=== PATIENT | female | born 1995 | race Caucasian/White ===

== ENCOUNTER 2019-04-23 18:46 | Emergency (ER) | payer OTHER, MEDICAID, SELFPAY ==
[2019-04-23 19:44] VITALS: BP 146/87; PULSE 97; RESP 18; TEMP 36.4; O2SAT 99; BMI 49.4
--- NOTE | 2019-04-23 20:10 | ED.NAVMDI ---
HPI - Nausea/Vomiting/Diarrhea <SCOTT Stevenson - Last Filed: 04/23/19 23:22> General Chief complaint: Nausea/Vomiting/Diarrhea Stated complaint: VOMITING FEVER BODY ACHES Time Seen by Provider: 04/23/19 19:58 Source: patient Mode of arrival: ambulatory Limitations: no limitations History of Present Illness HPI Narrative: 24-year-old female presents emergency department today complaining of full body aches with nausea and vomiting and diarrhea since Friday. She denies any abdominal pain but states when she pushes on a stomach it makes her feel like she is going to vomit more. She states she has an occasional dry cough without mucus production. This morning she checked her temperature and it was 101 for night. She denies any chest pain, shortness of breath, sick contacts, blood in her stool, syncope, or other concerning symptoms. Related Data Previous Rx's Medication Instructions Recorded sertraline [Zoloft] 50 mg PO QDAY #30 tab 05/14/17 nystatin 1 [place] TOPICAL BID #30 gm 05/19/17 norethindrone (contraceptive) 0.35 mg PO QDAY #1 pac 06/03/17 [Ortho Micronor] azithromycin [Zithromax] 250 - 500 mg PO QDAY #6 tab 07/17/17 ondansetron 4 mg PO Q6H #7 tab 04/23/19 sulfamethoxazole-trimethoprim 1 tab PO Q12H 5 Days #10 tab 04/23/19 [Bactrim DS] Allergies Allergy/AdvReac Type Severity Reaction Status Date / Time amoxicillin [From AUGMENTIN] Allergy Intermediate Verified 04/23/19 19:43 clavulanic acid Allergy Intermediate Verified 04/23/19 19:43 [From AUGMENTIN] Review of Systems <SCOTT Stevenson - Last Filed: 04/23/19 23:22> Review of Systems Narrative: REVIEW OF SYSTEMS: GENERAL: Denies fever, chills, malaise, or wt. loss. HENT: No head trauma, sore throat, or dysphagia. EYES: No loss of vision, double vision, eye pain, or irritation. CARDIOVASCULAR: No chest pain, palpitations, or orthopnea. RESPIRATORY: No shortness of breath or cough. GASTROINTESTINAL: Complains of nausea vomiting and diarrhea, see HPI GENITOURINARY: No flank pain, urinary incontinence, hesitancy, frequency, or dysuria. No vaginal discharge or dyspareunia. Denies concerns for STIs MUSCULOSKELETAL: No pain, weakness, or trauma. INTEGUMENTARY: No rash, lesions, or pruritus. NEURO: No numbness, tingling, memory loss, confusion, or headaches. PSYCH: No behavior or mood changes. PFSH <SCOTT Stevenson - Last Filed: 04/23/19 23:22> Medical History Morbid obesity (03/31/17) Social History Smoking Status: Never smoker Social History Smoking Status: Never smoker Exam <SCOTT Stevenson - Last Filed: 04/23/19 23:22> Initial Vital Signs Initial Vital Signs: Vital Signs Temperature 97.6 F 04/23/19 19:44 Pulse Rate 97 H 04/23/19 19:44 Respiratory Rate 18 04/23/19 19:44 Blood Pressure 146/87 H 04/23/19 19:44 Pulse Oximetry 99 04/23/19 19:44 PHYSICAL EXAMINATION: GENERAL: Well groomed, alert, and cooperative. Answers questions promptly and appropriately. Vital signs noted. HENT: Normocephalic, atraumatic. Hearing intact. Oral mucosa is pink and moist. EYES: Conjunctiva pink, sclera white, no periorbital swelling. CARDIOVASCULAR: S1 and S2 sounds normal. Regular rate and rhythm, no murmurs, clicks, or bruits. No pedal edema. RESPIRATORY: Normal respiratory rate, trachea midline, airway patent. No stridor, nasal flaring or accessory muscle use. Lungs are clear in all dejesus without wheeze, rhonchi, or crackles. GASTROINTESTINAL: Bowel sounds normoactive. Abdomen is soft, patient reports slight tenderness to epigastric area. No organomegaly, no palpable masses. GENITALURINARY: No flank tenderness. MUSCULOSKELETAL: Normal gait and coordination. Equal tone and mass bilaterally. EXTREMITIES: CMS intact, no pedal edema. SKIN: Warm, dry, soft, appropriate color for ethnicity. No lesions, rashes, or wounds. NEURO: Alert and Oriented X 3. Good coordination. No ataxia, or sensory deficits, or cognitive issues. PSYCH: Appropriate affect and mood. <Mikhail Diane - Last Filed: 04/23/19 23:25> Initial Vital Signs Initial Vital Signs: Vital Signs Temperature 97.6 F 04/23/19 19:44 Pulse Rate 97 H 04/23/19 19:44 Respiratory Rate 18 04/23/19 19:44 Blood Pressure 146/87 H 04/23/19 19:44 Pulse Oximetry 99 04/23/19 19:44 Course <Debra MonaeSCOTT - Last Filed: 04/23/19 23:22> Course Course Narrative: Patient reported improvement after administration of Zofran, she was able to get up and walk around. I gave her another dose of Zofran IV, she reported further relief of nausea. Due to her abdominal symptoms and urinalysis, I treated her with antibiotics. Strict return precautions given and all instructions discussed. Orders Ordered: ED Orders 04/23/19 20:18 Complete Blood Count AUTO DIFF Stat Comprehensive Metabolic Panel Stat 04/23/19 22:05 Urine Culture Stat Urine Microscopic Stat Discontinued Medications Sodium Chloride (Normal Saline 0.9%) 1,000 mls @ 1,000 mls/hr IV BOLUS ONE Stop: 04/23/19 21:04 Last Infusion: 04/23/19 22:12 Dose: 0 mls/hr Documented by: Admin: 04/23/19 20:35 Dose: 1,000 mls/hr Documented by: SHAHEED Ondansetron HCl (Zofran) 4 mg IV NOW ONE Stop: 04/23/19 20:06 Last Admin: 04/23/19 20:35 Dose: 4 mg Documented by: SHAHEED Ondansetron HCl (Zofran Odt) 4 mg SL NOW ONE Stop: 04/23/19 22:02 Last Admin: 04/23/19 22:56 Dose: Not Given Documented by: RICK Ondansetron HCl (Zofran) 4 mg IV NOW ONE Stop: 04/23/19 22:04 Last Admin: 04/23/19 22:14 Dose: 4 mg Documented by: RICK Ondansetron HCl (Zofran Odt Prepack) 1 bottle MISC SEEINSTR ONE Stop: 04/23/19 22:34 Last Admin: 04/23/19 22:51 Dose: 1 bottle Documented by: RICK Trimethoprim/Sulfamethoxazole (Bactrim Ds Prepack) 1 bottle MISC SEEINSTR ONE Stop: 04/23/19 22:34 Last Admin: 04/23/19 22:51 Dose: 1 bottle Documented by: RICK Vital Signs Vital signs: Vital Signs - 8 hr 04/23/19 19:44 04/23/19 22:54 Temperature 97.6 F Pulse Rate 97 H 86 Respiratory Rate 18 16 Blood Pressure 146/87 H 134/85 Pulse Oximetry 99 100 <Mikhail Diane DO - Last Filed: 04/23/19 23:25> Orders Ordered: ED Orders 04/23/19 20:18 Complete Blood Count AUTO DIFF Stat Comprehensive Metabolic Panel Stat 04/23/19 22:05 Urine Culture Stat Urine Microscopic Stat Discontinued Medications Sodium Chloride (Normal Saline 0.9%) 1,000 mls @ 1,000 mls/hr IV BOLUS ONE Stop: 04/23/19 21:04 Last Infusion: 04/23/19 22:12 Dose: 0 mls/hr Documented by: Admin: 04/23/19 20:35 Dose: 1,000 mls/hr Documented by: SHAHEED Ondansetron HCl (Zofran) 4 mg IV NOW ONE Stop: 04/23/19 20:06 Last Admin: 04/23/19 20:35 Dose: 4 mg Documented by: SHAHEED Ondansetron HCl (Zofran Odt) 4 mg SL NOW ONE Stop: 04/23/19 22:02 Last Admin: 04/23/19 22:56 Dose: Not Given Documented by: RICK Ondansetron HCl (Zofran) 4 mg IV NOW ONE Stop: 04/23/19 22:04 Last Admin: 04/23/19 22:14 Dose: 4 mg Documented by: RICK Ondansetron HCl (Zofran Odt Prepack) 1 bottle MISC SEEINSTR ONE Stop: 04/23/19 22:34 Last Admin: 04/23/19 22:51 Dose: 1 bottle Documented by: RICK Trimethoprim/Sulfamethoxazole (Bactrim Ds Prepack) 1 bottle MISC SEEINSTR ONE Stop: 04/23/19 22:34 Last Admin: 04/23/19 22:51 Dose: 1 bottle Documented by: RICK Vital Signs Vital signs: Vital Signs - 8 hr 04/23/19 19:44 04/23/19 22:54 Temperature 97.6 F Pulse Rate 97 H 86 Respiratory Rate 18 16 Blood Pressure 146/87 H 134/85 Pulse Oximetry 99 100 MDM - Nausea/Vomiting/Diarrhea <Debra SCOTT Monae - Last Filed: 04/23/19 23:22> Medical Records Attestation: I reviewed the patient's medical records. Lab Data Attestation: I reviewed the patient's lab results. Result diagrams: 04/23/19 20:18 04/23/19 20:18 Labs: Lab Results 04/23/19 04/23/19 04/23/19 Range/Units 20:18 20:18 22:05 WBC 11.0 (4.5-11.0) X10^3/uL RBC 4.77 (4.0-5.2) X10^6/uL Hgb 12.8 (12.0-16.0) g/dL Hct 38.8 (36-46) % MCV 81.3 (80-100) fL MCH 26.9 (26-34) PG MCHC 33.1 (30-36) % RDW 15.8 H (11.6-14.8) % Plt Count 229 (150-400) X10^3/uL Neut % (Auto) 59.2 (50-75) % Lymph % (Auto) 33.2 (25-40) % [place] % (Auto) 6.7 (3-14) % Eos % (Auto) 0.6 L (2-4) % Baso % (Auto) 0.3 (0-2) % Neut # (Auto) 6500 (6092-9543) /uL Lymph # (Auto) 3700 (3382-7496) /uL [place] # (Auto) 700 (0-900) /uL Eos # (Auto) 100 (0-450) /uL Baso # (Auto) 0 (0-100) /uL Sodium 139 (137-145) mmol/L Potassium 3.7 (3.4-5.1) mmol/L Chloride 102 (98-107) mmol/L Carbon Dioxide 25 (22-32) mmol/L BUN 18 H (7-17) mg/dL Creatinine 0.60 (0.52-1.04) mg/dL Estimated GFR > 60.0 (>60) mL/min BUN/Creatinine Ratio 30.0 H (6-22) Glucose 95 (70-100) mg/dL Calcium 9.1 (8.4-10.2) mg/dL Total Bilirubin 0.4 (0.2-1.3) mg/dL AST 23 (14-36) IU/L ALT 31 (9-52) IU/L Alkaline Phosphatase 65 (38-126) U/L Total Protein 7.4 (6.3-8.2) g/dL Albumin 4.4 (3.5-5.0) g/dL Globulin 3.0 (1.7-4.1) g/dL Albumin/Globulin Ratio 1.5 (1.0-2.8) Urine RBC 1-5/hpf (0-5/HPF) Urine WBC 10-30/hpf H (0-5/HPF) Ur Squamous Epith Cells 1-5 /hpf (0-5/HPF) Ur Transition Epith Cell 1-5/hpf (0-5/HPF) Urine Bacteria Moderate (10-30) H (None) Urine Mucus 2+ H (Negative) Ur Culture Indicated? Specimen cultured Influenza A & B (PCR) 04/23/19 Range/Units 22:35 WBC (4.5-11.0) X10^3/uL RBC (4.0-5.2) X10^6/uL Hgb (12.0-16.0) g/dL Hct (36-46) % MCV (80-100) fL MCH (26-34) PG MCHC (30-36) % RDW (11.6-14.8) % Plt Count (150-400) X10^3/uL Neut % (Auto) (50-75) % Lymph % (Auto) (25-40) % [place] % (Auto) (3-14) % Eos % (Auto) (2-4) % Baso % (Auto) (0-2) % Neut # (Auto) (4687-6355) /uL Lymph # (Auto) (6372-5922) /uL [place] # (Auto) (0-900) /uL Eos # (Auto) (0-450) /uL Baso # (Auto) (0-100) /uL Sodium (137-145) mmol/L Potassium (3.4-5.1) mmol/L Chloride (98-107) mmol/L Carbon Dioxide (22-32) mmol/L BUN (7-17) mg/dL Creatinine (0.52-1.04) mg/dL Estimated GFR (>60) mL/min BUN/Creatinine Ratio (6-22) Glucose (70-100) mg/dL Calcium (8.4-10.2) mg/dL Total Bilirubin (0.2-1.3) mg/dL AST (14-36) IU/L ALT (9-52) IU/L Alkaline Phosphatase (38-126) U/L Total Protein (6.3-8.2) g/dL Albumin (3.5-5.0) g/dL Globulin (1.7-4.1) g/dL Albumin/Globulin Ratio (1.0-2.8) Urine RBC (0-5/HPF) Urine WBC (0-5/HPF) Ur Squamous Epith Cells (0-5/HPF) Ur Transition Epith Cell (0-5/HPF) Urine Bacteria (None) Urine Mucus (Negative) Ur Culture Indicated? Influenza A & B (PCR) Cancelled Point of Care Testing Test Results Negative Urine Dip Bedside Urine Glucose Negative Bedside Urine Bilirubin - Negative Bedside Urine Ketone +/- 5 Urine Specific Abbott 1.030 Bedside Urine Occult Blood - Negative Bedside Urine Protein +/- 15 Bedside Urine Urobilinogen +/- 1mg Bedside Urine Nitrite - Negative Bedside Urine Leukocytes + 70 Esterase MDM Narrative Medical decision making narrative: Differential for nausea and vomiting include viral gastroenteritis (onset of symptoms, associated with body aches, laboratory results are within normal limits), urinary tract infection (as exhibited by urinalysis). Less likely acute abdomen such as appendicitis, cholecystitis, pancreatitis due to normal labs and nontender abdomen. Do not feel like patient is septic as she is not tachycardic or febrile in the emergency department. She was able to lose drink water during her stay in the emergency department after administration of Zofran, as she is a candidate for outpatient. Precautions and follow-up instructions discussed. <Mikhail Diane DO - Last Filed: 04/23/19 23:25> Lab Data Labs: Lab Results 04/23/19 04/23/19 04/23/19 Range/Units 20:18 20:18 22:05 WBC 11.0 (4.5-11.0) X10^3/uL RBC 4.77 (4.0-5.2) X10^6/uL Hgb 12.8 (12.0-16.0) g/dL Hct 38.8 (36-46) % MCV 81.3 (80-100) fL MCH 26.9 (26-34) PG MCHC 33.1 (30-36) % RDW 15.8 H (11.6-14.8) % Plt Count 229 (150-400) X10^3/uL Neut % (Auto) 59.2 (50-75) % Lymph % (Auto) 33.2 (25-40) % [place] % (Auto) 6.7 (3-14) % Eos % (Auto) 0.6 L (2-4) % Baso % (Auto) 0.3 (0-2) % Neut # (Auto) 6500 (2180-5437) /uL Lymph # (Auto) 3700 (3926-2993) /uL [place] # (Auto) 700 (0-900) /uL Eos # (Auto) 100 (0-450) /uL Baso # (Auto) 0 (0-100) /uL Sodium 139 (137-145) mmol/L Potassium 3.7 (3.4-5.1) mmol/L Chloride 102 (98-107) mmol/L Carbon Dioxide 25 (22-32) mmol/L BUN 18 H (7-17) mg/dL Creatinine 0.60 (0.52-1.04) mg/dL Estimated GFR > 60.0 (>60) mL/min BUN/Creatinine Ratio 30.0 H (6-22) Glucose 95 (70-100) mg/dL Calcium 9.1 (8.4-10.2) mg/dL Total Bilirubin 0.4 (0.2-1.3) mg/dL AST 23 (14-36) IU/L ALT 31 (9-52) IU/L Alkaline Phosphatase 65 (38-126) U/L Total Protein 7.4 (6.3-8.2) g/dL Albumin 4.4 (3.5-5.0) g/dL Globulin 3.0 (1.7-4.1) g/dL Albumin/Globulin Ratio 1.5 (1.0-2.8) Urine RBC 1-5/hpf (0-5/HPF) Urine WBC 10-30/hpf H (0-5/HPF) Ur Squamous Epith Cells 1-5 /hpf (0-5/HPF) Ur Transition Epith Cell 1-5/hpf (0-5/HPF) Urine Bacteria Moderate (10-30) H (None) Urine Mucus 2+ H (Negative) Ur Culture Indicated? Specimen cultured Influenza A & B (PCR) 04/23/19 Range/Units 22:35 WBC (4.5-11.0) X10^3/uL RBC (4.0-5.2) X10^6/uL Hgb (12.0-16.0) g/dL Hct (36-46) % MCV (80-100) fL MCH (26-34) PG MCHC (30-36) % RDW (11.6-14.8) % Plt Count (150-400) X10^3/uL Neut % (Auto) (50-75) % Lymph % (Auto) (25-40) % [place] % (Auto) (3-14) % Eos % (Auto) (2-4) % Baso % (Auto) (0-2) % Neut # (Auto) (0768-2217) /uL Lymph # (Auto) (8698-9334) /uL [place] # (Auto) (0-900) /uL Eos # (Auto) (0-450) /uL Baso # (Auto) (0-100) /uL Sodium (137-145) mmol/L Potassium (3.4-5.1) mmol/L Chloride (98-107) mmol/L Carbon Dioxide (22-32) mmol/L BUN (7-17) mg/dL Creatinine (0.52-1.04) mg/dL Estimated GFR (>60) mL/min BUN/Creatinine Ratio (6-22) Glucose (70-100) mg/dL Calcium (8.4-10.2) mg/dL Total Bilirubin (0.2-1.3) mg/dL AST (14-36) IU/L ALT (9-52) IU/L Alkaline Phosphatase (38-126) U/L Total Protein (6.3-8.2) g/dL Albumin (3.5-5.0) g/dL Globulin (1.7-4.1) g/dL Albumin/Globulin Ratio (1.0-2.8) Urine RBC (0-5/HPF) Urine WBC (0-5/HPF) Ur Squamous Epith Cells (0-5/HPF) Ur Transition Epith Cell (0-5/HPF) Urine Bacteria (None) Urine Mucus (Negative) Ur Culture Indicated? Influenza A & B (PCR) Cancelled Point of Care Testing Test Results Negative Urine Dip Bedside Urine Glucose Negative Bedside Urine Bilirubin - Negative Bedside Urine Ketone +/- 5 Urine Specific Abbott 1.030 Bedside Urine Occult Blood - Negative Bedside Urine Protein +/- 15 Bedside Urine Urobilinogen +/- 1mg Bedside Urine Nitrite - Negative Bedside Urine Leukocytes + 70 Esterase Discharge Plan Departure Patient Disposition: Home Clinical Impression: Nausea Urinary tract infection Qualifiers: Urinary tract infection type: acute cystitis Hematuria presence: without hematuria Qualified Code(s): N30.00 - Acute cystitis without hematuria Discharge Date/Time: 04/23/19 22:54 Instructions: DI for Urinary Tract Infection (UTI), DI for Vomiting -- Adult Activity Restrictions/Additional Instructions: Thank you for entrusting me with your care today. As discussed, your urine analysis indicates that you have a urinary tract infection, I prescribed you an antibiotic, please take this as directed. Your other lab work does not reveal any concerning symptoms are reason for vomiting. Please follow up with your primary care provider in the next week for further testing and evaluation if needed. Return to the emergency department for chest pain, shortness of breath, worsening fevers that do not resolve with Tylenol ibuprofen, uncontrollable vomiting, severe abdominal pain, or other concerning symptoms. Prescriptions: New sulfamethoxazole-trimethoprim [Bactrim DS] 800-160 mg tablet 1 tab PO Q12H 5 Days Qty: 10 RF: 0 ondansetron 4 mg tablet,disintegrating 4 mg PO Q6H Qty: 7 RF: 0 No Action sertraline [Zoloft] 50 MG tablet 50 mg PO QDAY Qty: 30 RF: 1 nystatin 30 GM cream 1 stanford Topical BID Qty: 30 RF: 1 norethindrone (contraceptive) [Ortho Micronor] 0.35 MG tablet 0.35 mg PO QDAY Qty: 1 RF: 6 azithromycin [Zithromax] 250 MG tablet 250 - 500 mg PO QDAY Qty: 6 RF: 0 Referrals: Yonathan Tipton MD [Primary Care Provider] - <Mikhail Diane DO - Last Filed: 04/23/19 23:25> Sign Out Provider Sign Out Attestation: I was available for consultation during this patient's emergency department encounter
[2019-04-23 20:32] LABS: Add Manual Diff / Slide Review NO; Basophils Absolute Auto 0 /uL (0-100); Basophils Percent Auto 0.3 % (0-2); Eosinophils Absolute Auto 100 /uL (0-450); Eosinophils Percent Auto 0.6 % (2-4); Hematocrit 38.8 % (36-46); Hemoglobin 12.8 g/dL (12.0-16.0); Lymphocytes Absolute Auto 3700 /uL (1100-4500); Lymphocytes Percent Auto 33.2 % (25-40); Mean Corpuscular HGB Conc 33.1 % (30-36); Mean Corpuscular Hemoglobin 26.9 PG (26-34); Mean Corpuscular Volume 81.3 fL (80-100); Monocytes Absolute Auto 700 /uL (0-900); Monocytes Percent Auto 6.7 % (3-14); Neutrophils Absolute Auto 6500 /uL (1500-7000); Neutrophils Percent Auto 59.2 % (50-75); Platelet Count 229 X10^3/uL (150-400); Red Blood Cell Count 4.77 X10^6/uL (4.0-5.2); Red Cell Distribution Width 15.8 % (11.6-14.8)
[2019-04-23] MEDS: ONDANSETRON 4 MG/2 ML INJ IV ×2 (20:35→22:14)
[2019-04-23] MEDS: SODIUM CHLORIDE 0.9% 1,000 ML 1000 ML IV (20:35)
[2019-04-23 20:45] LABS: Alanine Aminotransferase 31 IU/L (9-52); Albumin 4.4 g/dL (3.5-5.0); Albumin Globulin Ratio 1.5 (1.0-2.8); Alkaline Phosphatase 65 U/L (38-126); Aspartate Aminotransferase 23 IU/L (14-36); Bilirubin Total 0.4 mg/dL (0.2-1.3); Blood Urea Nitrogen 18 mg/dL (7-17); Calcium 9.1 mg/dL (8.4-10.2); Carbon Dioxide 25 mmol/L (22-32); Chloride 102 mmol/L (98-107); Estimated Glomerular Filt Rate > 60.0 mL/min (>60); Glucose 95 mg/dL (70-100); HEMOLYSIS < 15 (0-50); Potassium 3.7 mmol/L (3.4-5.1); Sodium 139 mmol/L (137-145); Total Protein 7.4 g/dL (6.3-8.2)
[2019-04-23 22:31] LABS: Bacteria Urine Moderate (10-30); Culture Indicated Urine Specimen Cultured; Mucus Urine 2+ (Negative); RBC Urine 1-5/HPF (0-5/HPF); Squamous Epithelial Cell Urine 1-5 /HPF (0-5/HPF); Transitional Epi Cells Urine 1-5/HPF (0-5/HPF); WBC Urine 10-30/HPF (0-5/HPF)
[2019-04-23] MEDS: ONDANSETRON 4 MG ODT PREPACK 1 BOTTLE MISC (22:51)
[2019-04-23] MEDS: TRIMETH/SULFA 160/800 PREPACK 1 BOTTLE MISC (22:51)
[2019-04-23 22:54] VITALS: BP 134/85; PULSE 86; RESP 16; O2SAT 100
== END 2019-04-23 22:54 | disposition home or self-care (01) ==
PROVIDERS: Emergency Provider Nurse Practitioner; Family Provider Internal Medicine Cardiovascular Disease; PCP Internal Medicine Cardiovascular Disease
DX: N30.00 Acute cystitis without hematuria (principal); R11.0 Nausea
CPT/HCPCS: 36591; 80053; 81003; 81015; 81025; 85025; 87086; 96361; 96374; 96375; 99283; 99284; J2405